=== PATIENT | female | born 1995 | race Caucasian/White ===

== ENCOUNTER 2016-08-13 10:54 | Emergency (ER) | payer BC ==
--- NOTE | 2016-08-13 11:23 | EDDOCDS ---
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 Believes she is having another outbreak. Onset: The symptoms/episode began/occurred acutely, 2 day(s) ago. This patient has not experienced a previous allergic reaction. Anaphylaxis evaluation, the patient reports or I have noted the following symptoms which indicate a significant risk of anaphylaxis: no signs or symptoms of anaphylaxis were noted. Adult Sepsis Screening: The patient does not have new or worsening altered mentation. Patient's respiratory rate is less than 22. Systolic blood pressure is greater than 100. Patient has a qSOFA score of 0- Negative Sepsis Screen. Suicide/Homicide risk assessment- the patient denies having any suicidal and/or homicidal ideations and does not present with any other emotional, behavioral or mental health complaints. Status: Patient is not a medical services coordinator or dependent. Transition of care: patient was not received from another setting of care. 11:02 Acuity: MARIELOS Level 5 jo3 11:02 Method Of Arrival: Walkin/Carried/Asstd jo3 Triage Assessment: 11:05 General: Appears in no apparent distress, Behavior is appropriate for age, cooperative. jo3 Pain: Pain currently is 6 out of 10 on a pain scale. HIV screening NA for this visit Offered previously. Neurological: Level of Consciousness is awake, alert, Oriented to person, place, time. Respiratory: Reports no respiratory complaints. Derm: Skin is pink, warm & dry. Shingles like rash beneath nose on left side and under eye on left side of face. 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 OBC - PMHx: shingles; sickle cell trait; - PSHx: none; - Social history: Smoking status: Patient states was never smoker of tobacco. No barriers to communication noted, The patient speaks fluent Setswana, Speaks appropriately for age. - Family history: Not pertinent. - : The pt / caregiver states he / she is not on anticoagulants. Home medication list is obtained from the patient. - Exposure Risk Screening:: None identified. Screenin:19 Screening information is obtained from the patient. Fall risk: No risks identified. ttb Assistance ADL's: requires no assistance with activities of daily living. Abuse/DV Screen: The patient / caregiver reports he/she is: not in a situation that causes fear, pain or injury. Nutritional screening: No deficits noted. Advance Directives: Currently, there is no health care proxy. home support is adequate. Assessment: 11:19 General: Appears in no apparent distress, well nourished, well groomed, Behavior is ttb appropriate for age, cooperative, pleasant. Pain: Location: left eye/cheekbone. Neurological: Level of Consciousness is awake, alert. Cardiovascular: Chest pain is denied. Respiratory: No deficits noted. Airway is patent Respiratory effort is even, unlabored, Breath sounds are clear bilaterally. Denies cough, shortness of breath. Derm: Skin is normal, rash noted to left upper lip and left cheekbone. Injury Description: No known injury. Vital Signs: 10:56 BP 132 / 77; Pulse 86; Resp 18 S; Temp 99.6(O); Pulse Ox 100% on R/A; Weight 67.13 kg dd6 (R); Height 5 ft. 3 in. (160.02 cm) (R); 10:56 Body Mass Index 26.22 (67.13 kg, 160.02 cm) dd6 Vitals: 10:56 Log In Time: August 13, 2016 at 10:54. dd6 ED Course: 10:55 Patient visited by Phani French PCA. dd6 10:55 Unknown, Family is Private Physician. dd6 10:55 Patient moved to Waiting dd6 10:56 Patient moved to Pre RCE dd6 11:04 Triage Initiated jo3 11:05 Eladio Snyder PA-C is PHCP. cc10 11:05 Jerica Sanchez MD is Attending Physician. cc10 11:06 Patient moved to Triage 3 srm 11:07 Patient visited by Eladio Snyder PA-C. cc10 11:07 Patient visited by Eladio Snyder PA-C. cc10 11:07 Patient visited by Bryanna Giordano,RN. jo3 11:19 The patient / caregiver is instructed regarding the plan of care and ED course. Patient ttb has correct armband on for positive identification. 11:19 No IV's were initiated during this patient's visit. No procedures done that require ttb assistance. Order Results: There are currently no results for this order. Outcome: 11:12 Discharge ordered by Provider. cc10 11:19 Discharge Assessment: Patient awake, alert and oriented x 3. No cognitive and/or ttb functional deficits noted. Patient verbalized understanding of disposition instructions. Patient awake and alert. patient administered narcotics - no. The following High Risk Discharge criteria are identified: None. Discharged to home ambulatory. Condition: good Condition: stable Condition: improved. Discharge instructions given to patient, Instructed on discharge instructions, follow up and referral plans. medication usage, Demonstrated understanding of instructions, medications, Pt was receptive of discharge instructions/ teaching. Prescriptions given X 3. No special radiology studies were completed. Property :Personal belongings accompany Pt. 11:22 Patient left the ED. ttb Signatures: Yolande Valles, RN [facility] Bryanna Giordano,RN RN jo3 Phani French, COMPENSATOR COMPENSATOR dd6 Sidra Tolentino RN RN ttb Eladio Snyder PA-C PA-C cc10 MTDD
--- NOTE | 2016-08-13 11:23 | EDDOCDS ---
Physician Documentation [facility] Name: Sheila Dunham Age: 21 yrs Sex: Female : 1995 Arrival Date: 08/13/2016 Time: 10:54 Bed Triage 3 Private MD: Unknown, Family Disposition: 08/13/16 11:12 Discharged to Home/Self Care. Impression: Zoster [herpes zoster]. - Condition is Stable. - Discharge Instructions: Shingles. - Prescriptions for Ultram 50 mg Oral Tablet - take 1 tablet by ORAL route every 6 hours As needed MDD: 4 tabs; 16 tablet. Acyclovir 800 mg Oral Tablet - take 1 tablet by ORAL route 5 times per day for 10 days; 50 tablet. Prednisone 20 mg Oral Tablet - take 2 tablet by ORAL route once daily for 5 days; 10 tablet. - Medication Reconciliation, Local Pharmacy Hours form. - Follow up: Private Physician; When: Call to arrange an appointment; Reason: Wound/Symptom Recheck, Recheck today's complaints, Worsening of conditions, Continuance of care. - Problem is new. - Symptoms are unchanged. Historical: - Allergies: no known allergies; - Home Meds: 1. OBC - PMHx: shingles; sickle cell trait; - PSHx: none; - Social history: Smoking status: Patient states was never smoker of tobacco. No barriers to communication noted, The patient speaks fluent Lao, Speaks appropriately for age. - Family history: Not pertinent. - : The pt / caregiver states he / she is not on anticoagulants. Home medication list is obtained from the patient. - Exposure Risk Screening:: None identified. 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 3 in. (160.02 cm) (R); 10:56 Body Mass Index 26.22 (67.13 kg, 160.02 cm) dd6 MDM: 11:16 Financial registration complete. lg Signatures: Marsha Walton, Reg Reg Bryanna LopezRN RN jo3 Rajan, Sidra, RN RN ttb Coniski, Eladio, PA-C PA-C cc10 MTDD
--- NOTE | 2016-08-15 12:23 | EDDOCDS ---
Physician Documentation [facility] Name: Sheila Dunham Age: 21 yrs Sex: Female : 1995 Arrival Date: 08/13/2016 Time: 10:54 Bed Triage 3 Private MD: Unknown, Family Disposition: 08/13/16 11:12 Discharged to Home/Self Care. Impression: Zoster [herpes zoster]. - Condition is Stable. - Discharge Instructions: Shingles. - Prescriptions for Ultram 50 mg Oral Tablet - take 1 tablet by ORAL route every 6 hours As needed MDD: 4 tabs; 16 tablet. Acyclovir 800 mg Oral Tablet - take 1 tablet by ORAL route 5 times per day for 10 days; 50 tablet. Prednisone 20 mg Oral Tablet - take 2 tablet by ORAL route once daily for 5 days; 10 tablet. - Medication Reconciliation, Local Pharmacy Hours form. - Follow up: Private Physician; When: Call to arrange an appointment; Reason: Wound/Symptom Recheck, Recheck today's complaints, Worsening of conditions, Continuance of care. - Problem is new. - Symptoms are unchanged. Historical: - Allergies: no known allergies; - Home Meds: 1. OBC - PMHx: shingles; sickle cell trait; - PSHx: none; - Social history: Smoking status: Patient states was never smoker of tobacco. No barriers to communication noted, The patient speaks fluent Dutch, Speaks appropriately for age. - Family history: Not pertinent. - : The pt / caregiver states he / she is not on anticoagulants. Home medication list is obtained from the patient. - Exposure Risk Screening:: None identified. 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 3 in. (160.02 cm) (R); 10:56 Body Mass Index 26.22 (67.13 kg, 160.02 cm) dd6 MDM: 11:16 Financial registration complete. lg 11:50 [facility] Payment Agreement was scanned into [employer] and attached to record. lg 13:29 T-Sheet-- Draft Copy was scanned into [employer] and attached to record. gb Signatures: Rebekah Alexander, Reg Reg gb Marsha Walton, Reg Reg lg Bryanna Giordano RN RN Sidra Barney RN RN ttb Coniski, Colin, PAJosh PAJosh cc10 The chart was reviewed and I authenticate all verbal orders and agree with the evaluation and treatment provided.Attachments: 11:50 [facility] Payment Agreement lg 13:29 T-Sheet-- Draft Copy gb Chart Complete MTDD
--- NOTE | 2016-08-15 12:23 | EDDOCDS ---
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 Believes she is having another outbreak. Onset: The symptoms/episode began/occurred acutely, 2 day(s) ago. This patient has not experienced a previous allergic reaction. Anaphylaxis evaluation, the patient reports or I have noted the following symptoms which indicate a significant risk of anaphylaxis: no signs or symptoms of anaphylaxis were noted. Adult Sepsis Screening: The patient does not have new or worsening altered mentation. Patient's respiratory rate is less than 22. Systolic blood pressure is greater than 100. Patient has a qSOFA score of 0- Negative Sepsis Screen. Suicide/Homicide risk assessment- the patient denies having any suicidal and/or homicidal ideations and does not present with any other emotional, behavioral or mental health complaints. Status: Patient is not a insurance service representative or dependent. Transition of care: patient was not received from another setting of care. 11:02 Acuity: MARIELOS Level 5 jo3 11:02 Method Of Arrival: Walkin/Carried/Asstd jo3 Triage Assessment: 11:05 General: Appears in no apparent distress, Behavior is appropriate for age, cooperative. jo3 Pain: Pain currently is 6 out of 10 on a pain scale. HIV screening NA for this visit Offered previously. Neurological: Level of Consciousness is awake, alert, Oriented to person, place, time. Respiratory: Reports no respiratory complaints. Derm: Skin is pink, warm & dry. Shingles like rash beneath nose on left side and under eye on left side of face. 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 OBC - PMHx: shingles; sickle cell trait; - PSHx: none; - Social history: Smoking status: Patient states was never smoker of tobacco. No barriers to communication noted, The patient speaks fluent Kazakh, Speaks appropriately for age. - Family history: Not pertinent. - : The pt / caregiver states he / she is not on anticoagulants. Home medication list is obtained from the patient. - Exposure Risk Screening:: None identified. Screenin:19 Screening information is obtained from the patient. Fall risk: No risks identified. ttb Assistance ADL's: requires no assistance with activities of daily living. Abuse/DV Screen: The patient / caregiver reports he/she is: not in a situation that causes fear, pain or injury. Nutritional screening: No deficits noted. Advance Directives: Currently, there is no health care proxy. home support is adequate. Assessment: 11:19 General: Appears in no apparent distress, well nourished, well groomed, Behavior is ttb appropriate for age, cooperative, pleasant. Pain: Location: left eye/cheekbone. Neurological: Level of Consciousness is awake, alert. Cardiovascular: Chest pain is denied. Respiratory: No deficits noted. Airway is patent Respiratory effort is even, unlabored, Breath sounds are clear bilaterally. Denies cough, shortness of breath. Derm: Skin is normal, rash noted to left upper lip and left cheekbone. Injury Description: No known injury. Vital Signs: 10:56 BP 132 / 77; Pulse 86; Resp 18 S; Temp 99.6(O); Pulse Ox 100% on R/A; Weight 67.13 kg dd6 (R); Height 5 ft. 3 in. (160.02 cm) (R); 10:56 Body Mass Index 26.22 (67.13 kg, 160.02 cm) dd6 Vitals: 10:56 Log In Time: August 13, 2016 at 10:54. dd6 ED Course: 10:55 Patient visited by Phani French PCA. dd6 10:55 Unknown, Family is Private Physician. dd6 10:55 Patient moved to Waiting dd6 10:56 Patient moved to Pre RCE dd6 11:04 Triage Initiated jo3 11:05 Eladio Snyder PA-C is PHCP. cc10 11:05 Jerica Sanchez MD is Attending Physician. cc10 11:06 Patient moved to Triage 3 srm 11:07 Patient visited by Eladio Snyder PA-C. cc10 11:07 Patient visited by Coniski, Eladio, PA-C. cc10 11:07 Patient visited by Bryanna Giordano RN. jo3 11:19 The patient / caregiver is instructed regarding the plan of care and ED course. Patient ttb has correct armband on for positive identification. 11:19 No IV's were initiated during this patient's visit. No procedures done that require ttb assistance. 11:43 Patient name changed from Sheila\S\\S\Dunham\S\ to Sheila\S\A\S\Dunham. EDMS 11:50 [facility] [place] [place] Payment Agreement was scanned into [employer] and attached to record. 13:29 T-Sheet-- Draft Copy was scanned into [employer] and attached to record. gb Order Results: There are currently no results for this order. Outcome: 11:12 Discharge ordered by Provider. cc10 11:19 Discharge Assessment: Patient awake, alert and oriented x 3. No cognitive and/or ttb functional deficits noted. Patient verbalized understanding of disposition instructions. Patient awake and alert. patient administered narcotics - no. The following High Risk Discharge criteria are identified: None. Discharged to home ambulatory. Condition: good Condition: stable Condition: improved. Discharge instructions given to patient, Instructed on discharge instructions, follow up and referral plans. medication usage, Demonstrated understanding of instructions, medications, Pt was receptive of discharge instructions/ teaching. Prescriptions given X 3. No special radiology studies were completed. Property :Personal belongings accompany Pt. 11:22 Patient left the ED. ttb Signatures: Dispatcher [facility] EDTX Yolande Valles RN RN [facility] Rebekah Alexander, Reg Reg Marsha Walton, Reg Reg Bryanna Giordano RN RN jo3 Phani French, KASHMIR LINE INSTALLATION SUPERVISOR dd6 Sidra Tolentino RN RN ttb Coniski, Colin, PA-Ham PA-C cc10 Chart Complete MTDD
--- NOTE | 2016-08-15 12:23 | EDDOCDS ---
Physician Documentation [facility] Name: Sheila Dunham Age: 21 yrs Sex: Female : 1995 Arrival Date: 08/13/2016 Time: 10:54 Bed Triage 3 Private MD: Unknown, Family Disposition: 08/13/16 11:12 Discharged to Home/Self Care. Impression: Zoster [herpes zoster]. - Condition is Stable. - Discharge Instructions: Shingles. - Prescriptions for Ultram 50 mg Oral Tablet - take 1 tablet by ORAL route every 6 hours As needed MDD: 4 tabs; 16 tablet. Acyclovir 800 mg Oral Tablet - take 1 tablet by ORAL route 5 times per day for 10 days; 50 tablet. Prednisone 20 mg Oral Tablet - take 2 tablet by ORAL route once daily for 5 days; 10 tablet. - Medication Reconciliation, Local Pharmacy Hours form. - Follow up: Private Physician; When: Call to arrange an appointment; Reason: Wound/Symptom Recheck, Recheck today's complaints, Worsening of conditions, Continuance of care. - Problem is new. - Symptoms are unchanged. Historical: - Allergies: no known allergies; - Home Meds: 1. OBC - PMHx: shingles; sickle cell trait; - PSHx: none; - Social history: Smoking status: Patient states was never smoker of tobacco. No barriers to communication noted, The patient speaks fluent Nigerian, Speaks appropriately for age. - Family history: Not pertinent. - : The pt / caregiver states he / she is not on anticoagulants. Home medication list is obtained from the patient. - Exposure Risk Screening:: None identified. 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 3 in. (160.02 cm) (R); 10:56 Body Mass Index 26.22 (67.13 kg, 160.02 cm) dd6 MDM: 11:16 Financial registration complete. lg 11:50 [facility] Payment Agreement was scanned into [employer] and attached to record. lg 13:29 T-Sheet-- Draft Copy was scanned into [employer] and attached to record. gb Signatures: Rebekah Alexander, Reg Reg gb Marsha Walton, Reg Reg lg Bryanna Giordano RN RN Sidra Barney RN RN ttb Coniski, Colin, PAJosh PAJosh cc10 The chart was reviewed and I authenticate all verbal orders and agree with the evaluation and treatment provided.Attachments: 11:50 [facility] Payment Agreement lg 13:29 T-Sheet-- Draft Copy gb Chart Complete MTDD
== END 2016-08-13 11:22 | disposition home or self-care (01) ==
LOC: M ED 10:54
DX: B02.9 Zoster without complications (principal); D57.3 Sickle-cell trait; Z79.3 Long term (current) use of hormonal contraceptives